=== PATIENT | female | born 1940 | race African-American/Black ===

== ENCOUNTER 2022-07-19 22:22 | Inpatient (IN) | payer MEDICARE ==
[2022-07-20 00:50] VITALS: BMI 34.5
[2022-07-20] MEDS ORDERED: Ondansetron PF 4 MG/2 ML Vial IVP PRN (00:58)
[2022-07-20] MEDS ORDERED: Warfarin Sodium 5 MG TAB PO SCH (01:15)
[2022-07-20] MEDS: Acetaminophen 325 MG TAB PO PRN ×2 (06:06→21:15)
[2022-07-20] MEDS ORDERED: HumaLOG 300 UNITS/3 ML VIAL SC PRN (07:10)
[2022-07-20] MEDS ORDERED: Dextrose 50% Abboject 50 ML SYRINGE SLOW IVP PRN (07:10)
[2022-07-20] MEDS ORDERED: Dextrose 5% in Water 1,000 ML IV PRN (07:10)
[2022-07-20] MEDS ORDERED: Furosemide 20 MG/2 ML VIAL SLOW IVP SCH ×2 (07:15→14:00)
[2022-07-20 08:17] LABS: #Basophils 0.1 thou/uL (0.0-0.2); #Eosinphils 0.1 thou/uL (0.0-0.7); #Lymphocytes 1.5 thou/uL (1.20-3.40); #Monocytes 0.6 thou/uL (0.11-0.59); #Neutrophils 4.3 thou/uL (1.40-6.50); %Basophils 1.1 % (0.0-1.0); %Eosinophils 2.2 % (0.0-10.0); %Lymphocytes 23.3 % (21.0-51.0); %Monocytes 8.5 % (0.0-10.0); Hemoglobin 13.6 g/dL (12.0-16.0); Mean Corpuscular HGB CONC 35.2 g/dL (32.0-36.0); Mean Corpuscular Volume 85.4 fl (78.0-98.0); Mean Platelet Volume 9.3 fL (7.4-10.4); Platelet Count 180 10x3/uL (130-400); RBC Distribution Width 14.1 % (11.5-14.5); Red Blood Cell (RBC) Count 4.52 mill/uL (4.20-5.40); White Blood Cell (WBC) Count 6.5 10x3/uL (4.8-10.8)
[2022-07-20 08:37] LABS: Anion Gap 13 mmol/L (10-20); BUN (Urea Nitrogen) 10 mg/dL (9.8-20.1); Calc. Creatinine Clearance 79 mL/min (70-130); Calcium 9.5 mg/dL (7.8-10.44); Carbon Dioxide 25 mmol/L (23-31); Chloride 105 mmol/L (98-107); Estimated GFR 81; Glucose 180 mg/dL (83-110); Potassium 3.7 mmol/L (3.5-5.1); Sodium 139 mmol/L (136-145)
[2022-07-20 08:43] LABS: INR-International Normal Ratio 1.1; Prothrombin Time 14.5 sec (12.0-14.7)
[2022-07-20 08:44] LABS: PTT 37.2 sec (22.9-36.1)
[2022-07-20] MEDS: HumaLOG 300 UNITS/3 ML VIAL SC PRN ×2 (12:00→17:58)
[2022-07-20] MEDS: busPIRone HCl 10 MG TAB PO SCH ×2 (13:53→21:16)
[2022-07-20] MEDS: hydrALAZINE 10 MG TAB PO SCH ×2 (13:53→21:14)
[2022-07-20] MEDS: Warfarin Sodium 5 MG TAB PO SCH (17:58)
[2022-07-21 07:43] LABS: #Basophils 0.1 thou/uL (0.0-0.2); #Eosinphils 0.1 thou/uL (0.0-0.7); #Lymphocytes 1.3 thou/uL (1.20-3.40); #Monocytes 0.5 thou/uL (0.11-0.59); #Neutrophils 4.1 thou/uL (1.40-6.50); %Basophils 1.3 % (0.0-1.0); %Eosinophils 1.8 % (0.0-10.0); %Monocytes 8.7 % (0.0-10.0); %Neutrophils 67.2 % (42.0-75.0); Hemoglobin 14.1 g/dL (12.0-16.0); Mean Corpuscular HGB CONC 33.8 g/dL (32.0-36.0); Mean Corpuscular Hemoglobin 29.2 pg (27.0-31.0); Mean Corpuscular Volume 86.5 fl (78.0-98.0); Mean Platelet Volume 8.7 fL (7.4-10.4); Platelet Count 194 10x3/uL (130-400); RBC Distribution Width 14.1 % (11.5-14.5); Red Blood Cell (RBC) Count 4.82 mill/uL (4.20-5.40); White Blood Cell (WBC) Count 6.2 10x3/uL (4.8-10.8)
[2022-07-21 07:56] LABS: INR-International Normal Ratio 1.2; PTT 40.6 sec (22.9-36.1); Prothrombin Time 16.1 sec (12.0-14.7)
[2022-07-21 08:02] LABS: Anion Gap 12 mmol/L (10-20); BUN (Urea Nitrogen) 11 mg/dL (9.8-20.1); Calc. Creatinine Clearance 74 mL/min (70-130); Calcium 9.4 mg/dL (7.8-10.44); Carbon Dioxide 28 mmol/L (23-31); Chloride 105 mmol/L (98-107); Estimated GFR 75; Glucose 169 mg/dL (83-110); Potassium 3.4 mmol/L (3.5-5.1); Sodium 142 mmol/L (136-145)
[2022-07-21] MEDS: hydrALAZINE 10 MG TAB PO SCH ×3 (09:53→20:48)
[2022-07-21] MEDS: Furosemide 40 MG TAB PO SCH (09:53)
[2022-07-21] MEDS: metFORMIN 500 MG TAB PO SCH (09:53)
[2022-07-21] MEDS: busPIRone HCl 10 MG TAB PO SCH ×3 (09:53→20:49)
[2022-07-21] MEDS: HumaLOG 300 UNITS/3 ML VIAL SC PRN ×2 (13:27→18:27)
[2022-07-21] MEDS ORDERED: Polyethylene Glycol 3350 17 GM Packet PO SCH (15:00)
[2022-07-21] MEDS: Warfarin Sodium 5 MG TAB PO SCH (18:02)
[2022-07-22 06:15] LABS: Hemoglobin 14.1 g/dL (12.0-16.0); INR-International Normal Ratio 1.5; PTT 47.3 sec (22.9-36.1); Platelet Count 188 10x3/uL (130-400); Prothrombin Time 18.2 sec (12.0-14.7)
[2022-07-22] MEDS: hydrALAZINE 10 MG TAB PO SCH ×3 (08:32→20:16)
[2022-07-22] MEDS: metFORMIN 500 MG TAB PO SCH ×2 (08:32→20:15)
[2022-07-22] MEDS: Furosemide 40 MG TAB PO SCH (08:32)
[2022-07-22] MEDS: Polyethylene Glycol 3350 17 GM Packet PO SCH (08:33)
[2022-07-22] MEDS: busPIRone HCl 10 MG TAB PO SCH ×3 (08:33→20:15)
[2022-07-22] MEDS ORDERED: Iopamidol 370 76% 100 ML VIAL ONE (09:42)
[2022-07-22] MEDS ORDERED: Potassium Chloride 20 MEQ TAB PO SCH (16:15)
[2022-07-22] MEDS: Warfarin Sodium 5 MG TAB PO SCH (16:57)
[2022-07-22] MEDS ORDERED: Aspirin 81 mg Enteric Coated Tablet PO SCH (17:30)
[2022-07-22] MEDS: Atorvastatin Calcium 40 MG TAB PO SCH (20:15)
[2022-07-22] MEDS: Famotidine 20 MG TAB PO SCH (20:15)
[2022-07-23 05:39] LABS: Hemoglobin 13.7 g/dL (12.0-16.0); Platelet Count 195 10x3/uL (130-400)
[2022-07-23 05:48] LABS: Hemoglobin A1c 7.2 % (4.0-6.0)
[2022-07-23 06:08] LABS: Cardiac Risk 4.4 (Less than 4.5)
[2022-07-23 06:22] LABS: INR-International Normal Ratio 1.6; Prothrombin Time 19.8 sec (12.0-14.7)
[2022-07-23 06:23] LABS: PTT 49.7 sec (22.9-36.1)
[2022-07-23] MEDS: busPIRone HCl 10 MG TAB PO SCH ×3 (08:46→20:39)
[2022-07-23] MEDS: Polyethylene Glycol 3350 17 GM Packet PO SCH (08:50)
[2022-07-23] MEDS: hydrALAZINE 10 MG TAB PO SCH ×3 (08:52→20:39)
[2022-07-23] MEDS: Famotidine 20 MG TAB PO SCH ×2 (08:52→20:39)
[2022-07-23] MEDS: metFORMIN 500 MG TAB PO SCH ×2 (08:52→20:39)
[2022-07-23] MEDS: Aspirin 81 mg Enteric Coated Tablet PO SCH (08:53)
[2022-07-23] MEDS: Furosemide 40 MG TAB PO SCH (08:53)
[2022-07-23] MEDS: Acetaminophen 325 MG TAB PO PRN (12:41)
[2022-07-23] MEDS: Warfarin Sodium 7.5 MG TAB PO SCH (17:34)
[2022-07-23] MEDS: Atorvastatin Calcium 40 MG TAB PO SCH (20:39)
[2022-07-24 07:10] LABS: Hemoglobin 13.7 g/dL (12.0-16.0); Platelet Count 205 10x3/uL (130-400)
[2022-07-24 07:39] LABS: INR-International Normal Ratio 1.6; Prothrombin Time 19.9 sec (12.0-14.7)
[2022-07-24] MEDS: busPIRone HCl 10 MG TAB PO SCH ×3 (08:46→20:45)
[2022-07-24] MEDS: Famotidine 20 MG TAB PO SCH ×2 (08:51→20:45)
[2022-07-24] MEDS: Furosemide 40 MG TAB PO SCH (08:51)
[2022-07-24] MEDS: Aspirin 81 mg Enteric Coated Tablet PO SCH (08:51)
[2022-07-24] MEDS: metFORMIN 500 MG TAB PO SCH ×2 (08:51→20:47)
[2022-07-24] MEDS: Polyethylene Glycol 3350 17 GM Packet PO SCH ×2 (08:52→09:01)
[2022-07-24] MEDS: hydrALAZINE 10 MG TAB PO SCH ×3 (08:59→20:46)
[2022-07-24] MEDS: Gabapentin 300 MG CAP PO PRN ×2 (12:37→20:46)
[2022-07-24] MEDS: Acetaminophen 325 MG TAB PO PRN (14:51)
[2022-07-24] MEDS: Warfarin Sodium 7.5 MG TAB PO SCH (18:04)
[2022-07-24] MEDS: Atorvastatin Calcium 40 MG TAB PO SCH (20:47)
[2022-07-25 07:06] LABS: Hemoglobin 14.2 g/dL (12.0-16.0); Platelet Count 194 10x3/uL (130-400)
[2022-07-25 07:20] LABS: Prothrombin Time 23.9 sec (12.0-14.7)
[2022-07-25] MEDS: Aspirin 81 mg Enteric Coated Tablet PO SCH (08:43)
[2022-07-25] MEDS: Furosemide 40 MG TAB PO SCH (08:43)
[2022-07-25] MEDS: busPIRone HCl 10 MG TAB PO SCH (08:43)
[2022-07-25] MEDS: Famotidine 20 MG TAB PO SCH (08:44)
[2022-07-25] MEDS: metFORMIN 500 MG TAB PO SCH (08:44)
[2022-07-25] MEDS: hydrALAZINE 10 MG TAB PO SCH (08:44)
[2022-07-25] MEDS: Polyethylene Glycol 3350 17 GM Packet PO SCH (08:45)
[2022-07-25] MEDS: Gabapentin 300 MG CAP PO PRN (09:22)
[2022-07-25 12:19] VITALS: BP 132/81; TEMP 98.8
== END 2022-07-25 13:51 | disposition swing bed (61) | DRG 301 ==
LOC: T4-B 22:22 → OBSVTOIN 07-20 01:00
PROVIDERS: ADMIT Internal Medicine; ATTEND Internal Medicine
DX: I82.412 Acute embolism and thrombosis of left femoral vein (principal); Z66 Do not resuscitate; Z51.5 Encounter for palliative care; E87.6 Hypokalemia; I70.1 Atherosclerosis of renal artery; I11.0 Hypertensive heart disease with heart failure; E11.9 Type 2 diabetes mellitus without complications; G20 Parkinson's disease; I50.9 Heart failure, unspecified; Z88.5 Allergy status to narcotic agent; Z88.8 Allergy status to other drugs, medicaments and biological substances; Z79.84 Long term (current) use of oral hypoglycemic drugs; Z79.02 Long term (current) use of antithrombotics/antiplatelets; Z79.899 Other long term (current) drug therapy
CPT/HCPCS: 36415; 36416; 74177; 75635; 80048; 80061; 83036; 83880; 85014; 85018; 85025; 85049; 85610; 85730; 93923; 93970; J1650; J1815; J1940; J2405; Q9967

== ENCOUNTER 2022-08-25 17:13 | Inpatient (IN) | payer MEDICARE ==
[2022-08-25 19:35] VITALS: BMI 31.0
[2022-08-25] MEDS ORDERED: Ondansetron ODT 4 MG TAB PO PRN (20:27)
[2022-08-25] MEDS ORDERED: Dextrose 5% in Water 1,000 ML IV PRN (20:27)
[2022-08-25] MEDS ORDERED: Ondansetron PF 4 MG/2 ML Vial IVP PRN (20:27)
[2022-08-25] MEDS ORDERED: TETANUS, DIPHTHERIA TOX,ADULT (TDVAX) 0.5 ML VIAL IM ONE (20:27)
[2022-08-25] MEDS ORDERED: Dextrose 50% Abboject 50 ML SYRINGE SLOW IVP PRN (20:27)
[2022-08-25] MEDS ORDERED: traMADol HCl 50 MG TAB PO PRN (20:32)
[2022-08-25] MEDS ORDERED: Acetaminophen 325 MG TAB PO PRN (20:32)
[2022-08-25] MEDS ORDERED: Docusate 100 MG CAP PO PRN (20:33)
[2022-08-25] MEDS ORDERED: Labetalol HCl 100 MG/20 ML VIAL SLOW IVP PRN (20:33)
[2022-08-25] MEDS ORDERED: Bisacodyl 10 MG SUPP PR PRN (20:33)
[2022-08-25] MEDS ORDERED: Gabapentin 300 MG CAP PO PRN (20:36)
[2022-08-25] MEDS: hydrALAZINE 10 MG TAB PO SCH (22:38)
[2022-08-25] MEDS: busPIRone HCl 10 MG TAB PO SCH (22:38)
[2022-08-25] MEDS: Famotidine 20 MG TAB PO SCH (22:38)
[2022-08-25] MEDS: Atorvastatin Calcium 40 MG TAB PO SCH (22:38)
[2022-08-26 02:24] LABS: #Basophils 0.1 thou/uL (0.0-0.2); #Eosinphils 0.1 thou/uL (0.0-0.7); #Lymphocytes 1.7 thou/uL (1.20-3.40); #Monocytes 0.7 thou/uL (0.11-0.59); #Neutrophils 5.6 thou/uL (1.40-6.50); %Basophils 0.7 % (0.0-1.0); %Eosinophils 1.6 % (0.0-10.0); %Lymphocytes 20.6 % (21.0-51.0); %Monocytes 9.1 % (0.0-10.0); Hemoglobin 12.8 g/dL (12.0-16.0); Mean Corpuscular HGB CONC 35.1 g/dL (32.0-36.0); Mean Corpuscular Hemoglobin 29.1 pg (27.0-31.0); Mean Corpuscular Volume 83.1 fl (78.0-98.0); Mean Platelet Volume 8.5 fL (7.4-10.4); Platelet Count 196 10x3/uL (130-400); RBC Distribution Width 13.8 % (11.5-14.5); Red Blood Cell (RBC) Count 4.39 mill/uL (4.20-5.40); White Blood Cell (WBC) Count 8.2 10x3/uL (4.8-10.8)
[2022-08-26 02:36] LABS: INR-International Normal Ratio 1.4; PTT 30.9 sec (22.9-36.1); Prothrombin Time 17.5 sec (12.0-14.7)
[2022-08-26 03:17] LABS: Anion Gap 17 mmol/L (10-20); BUN (Urea Nitrogen) 8 mg/dL (9.8-20.1); Calc. Creatinine Clearance 75 mL/min (70-130); Calcium 8.9 mg/dL (7.8-10.44); Carbon Dioxide 22 mmol/L (23-31); Chloride 103 mmol/L (98-107); Estimated GFR 86; Glucose 152 mg/dL (83-110); Magnesium 1.9 mg/dL (1.6-2.6); Phosphorus 2.6 mg/dL (2.3-4.7); Potassium 3.3 mmol/L (3.5-5.1); Sodium 139 mmol/L (136-145)
[2022-08-26] MEDS ORDERED: Potassium Chloride 20 MEQ TAB PO SCH (07:00)
[2022-08-26] MEDS: busPIRone HCl 10 MG TAB PO SCH ×3 (08:05→20:34)
[2022-08-26] MEDS: hydrALAZINE 10 MG TAB PO SCH ×3 (08:07→20:35)
[2022-08-26] MEDS ORDERED: hydrALAZINE 10 MG TAB PO SCH (08:30)
[2022-08-26] MEDS: hydrALAZINE 25 MG TAB PO SCH ×2 (16:02→20:34)
[2022-08-26] MEDS: Famotidine 20 MG TAB PO SCH (20:33)
[2022-08-26] MEDS: Atorvastatin Calcium 40 MG TAB PO SCH (20:33)
[2022-08-26] MEDS ORDERED: Sodium Chloride 0.9% 500 ML IV SCH (22:45)
[2022-08-27 08:02] LABS: Anion Gap 19 mmol/L (10-20); BUN (Urea Nitrogen) 10 mg/dL (9.8-20.1); Calc. Creatinine Clearance 73 mL/min (70-130); Calcium 8.7 mg/dL (7.8-10.44); Carbon Dioxide 19 mmol/L (23-31); Chloride 108 mmol/L (98-107); Estimated GFR 79; Glucose 110 mg/dL (83-110); Potassium 4.4 mmol/L (3.5-5.1); Sodium 142 mmol/L (136-145)
[2022-08-27] MEDS: busPIRone HCl 10 MG TAB PO SCH ×3 (08:55→21:02)
[2022-08-27] MEDS: hydrALAZINE 25 MG TAB PO SCH ×3 (08:56→21:02)
[2022-08-27] MEDS: hydrALAZINE 10 MG TAB PO SCH ×3 (10:14→21:12)
[2022-08-27] MEDS: HumaLOG 300 UNITS/3 ML VIAL SC PRN ×2 (12:29→16:39)
[2022-08-27] MEDS: Warfarin Sodium 7.5 MG TAB PO SCH (16:39)
[2022-08-27] MEDS: Famotidine 20 MG TAB PO SCH (21:02)
[2022-08-27] MEDS: Atorvastatin Calcium 40 MG TAB PO SCH (21:02)
[2022-08-28] MEDS: HumaLOG 300 UNITS/3 ML VIAL SC PRN ×2 (00:47→21:20)
[2022-08-28 06:20] LABS: INR-International Normal Ratio 1.1; Prothrombin Time 14.6 sec (12.0-14.7)
[2022-08-28] MEDS ORDERED: HumaLOG 300 UNITS/3 ML VIAL SC PRN (08:45)
[2022-08-28] MEDS: busPIRone HCl 10 MG TAB PO SCH ×3 (09:21→20:17)
[2022-08-28] MEDS: hydrALAZINE 25 MG TAB PO SCH ×3 (09:21→22:15)
[2022-08-28] MEDS: Warfarin Sodium 7.5 MG TAB PO SCH (17:47)
[2022-08-28] MEDS: Famotidine 20 MG TAB PO SCH (20:18)
[2022-08-28] MEDS: Atorvastatin Calcium 40 MG TAB PO SCH (20:18)
[2022-08-29 06:03] LABS: Hemoglobin 11.7 g/dL (12.0-16.0); Platelet Count 202 10x3/uL (130-400)
[2022-08-29 06:17] LABS: INR-International Normal Ratio 1.1; Prothrombin Time 14.9 sec (12.0-14.7)
[2022-08-29] MEDS: hydrALAZINE 25 MG TAB PO SCH ×2 (09:49→15:16)
[2022-08-29] MEDS: busPIRone HCl 10 MG TAB PO SCH ×2 (09:49→15:15)
[2022-08-29 15:21] VITALS: BP 136/80; TEMP 98.7
[2022-08-29] MEDS: Warfarin Sodium 7.5 MG TAB PO SCH (17:47)
== END 2022-08-29 18:03 | DRG 83 ==
LOC: IMCU/EMU 19:22 → SURG A 08-26 19:20
PROVIDERS: ADMIT Student in an Organized Health Care Education/Training Program; ATTEND Student in an Organized Health Care Education/Training Program
DX: S06.6XAA Traumatic subarachnoid hemorrhage with loss of consciousness status unknown, initial encounter (principal); I82.412 Acute embolism and thrombosis of left femoral vein; I82.442 Acute embolism and thrombosis of left tibial vein; E11.51 Type 2 diabetes mellitus with diabetic peripheral angiopathy without gangrene; G20 Parkinson's disease; F02.80 Dementia in other diseases classified elsewhere, unspecified severity, without behavioral disturbance, psychotic disturbance, mood disturbance, and anxiety; I11.0 Hypertensive heart disease with heart failure; I50.9 Heart failure, unspecified; W19.XXXA Unspecified fall, initial encounter; Z90.49 Acquired absence of other specified parts of digestive tract; Z88.5 Allergy status to narcotic agent; Z90.710 Acquired absence of both cervix and uterus; Z79.84 Long term (current) use of oral hypoglycemic drugs; Z79.82 Long term (current) use of aspirin; Z79.02 Long term (current) use of antithrombotics/antiplatelets; Z79.899 Other long term (current) drug therapy
CPT/HCPCS: 36415; 36416; 70450; 70551; 80048; 83735; 84100; 84484; 85014; 85018; 85025; 85049; 85610; 85730; 90714; 93005; 93010; 93970; J1650; J7030

== ENCOUNTER 2022-10-01 12:54 | Inpatient (IN) | payer MEDICARE ==
[2022-10-01] MEDS ORDERED: Ondansetron ODT 4 MG TAB PO PRN (17:12)
[2022-10-01] MEDS ORDERED: Ondansetron PF 4 MG/2 ML Vial IVP PRN (17:12)
[2022-10-01] MEDS ORDERED: Acetaminophen 325 MG TAB PO PRN (17:18)
[2022-10-01] MEDS ORDERED: Dextrose 50% Abboject 50 ML SYRINGE SLOW IVP PRN (17:22)
[2022-10-01] MEDS ORDERED: HumaLOG 300 UNITS/3 ML VIAL SC PRN (17:22)
[2022-10-01] MEDS ORDERED: Dextrose 5% in Water 1,000 ML IV PRN (17:22)
[2022-10-01] MEDS ORDERED: Glucagon 1 MG/ML KIT IM PRN (17:22)
[2022-10-01 17:42] VITALS: BMI 33.5
[2022-10-01 18:52] LABS: INR-International Normal Ratio 1.5; Prothrombin Time 18.5 sec (12.0-14.7)
[2022-10-01 18:59] LABS: CKMB 0.7 ng/mL (0-6.6)
[2022-10-01] MEDS: busPIRone HCl 10 MG TAB PO SCH (20:43)
[2022-10-01] MEDS: traMADol HCl 50 MG TAB PO SCH (20:43)
[2022-10-01] MEDS: Atorvastatin Calcium 40 MG TAB PO SCH (20:43)
[2022-10-01] MEDS: cefTRIAXone\\ROCEPHIN 1 GM in Sodium Chloride 0.9% 100 ML IVPB SCH (20:43)
[2022-10-02 06:17] LABS: #Basophils 0.1 thou/uL (0.0-0.2); #Eosinphils 0.4 thou/uL (0.0-0.7); #Monocytes 0.7 thou/uL (0.11-0.59); #Neutrophils 4.3 thou/uL (1.40-6.50); %Basophils 2.1 % (0.0-1.0); %Eosinophils 5.9 % (0.0-10.0); %Lymphocytes 18.3 % (21.0-51.0); %Monocytes 9.9 % (0.0-10.0); %Neutrophils 63.5 % (42.0-75.0); Hemoglobin 11.1 g/dL (12.0-16.0); Mean Corpuscular HGB CONC 35.2 g/dL (32.0-36.0); Mean Corpuscular Hemoglobin 28.9 pg (27.0-31.0); Mean Platelet Volume 11.1 fL (7.4-10.4); Platelet Count 238 10x3/uL (130-400); RBC Distribution Width 17.2 % (11.5-14.5); Red Blood Cell (RBC) Count 3.84 mill/uL (4.20-5.40); White Blood Cell (WBC) Count 6.8 10x3/uL (4.8-10.8)
[2022-10-02 06:30] LABS: INR-International Normal Ratio 1.5; Prothrombin Time 18.3 sec (12.0-14.7)
[2022-10-02 06:38] LABS: Anion Gap 11 mmol/L (10-20); BUN (Urea Nitrogen) 13 mg/dL (9.8-20.1); Calc. Creatinine Clearance 84 mL/min (70-130); Calcium 8.9 mg/dL (7.8-10.44); Carbon Dioxide 25 mmol/L (23-31); Chloride 107 mmol/L (98-107); Estimated GFR 87; Glucose 96 mg/dL (83-110); Potassium 3.3 mmol/L (3.5-5.1); Sodium 140 mmol/L (136-145)
[2022-10-02] MEDS: Aspirin 81 mg Enteric Coated Tablet PO SCH (08:44)
[2022-10-02] MEDS: busPIRone HCl 10 MG TAB PO SCH ×3 (08:45→22:24)
[2022-10-02] MEDS: Furosemide 40 MG TAB PO SCH (08:45)
[2022-10-02] MEDS: traMADol HCl 50 MG TAB PO SCH ×2 (08:45→22:25)
[2022-10-02] MEDS: Potassium Chloride 10 MEQ TAB PO SCH (08:46)
[2022-10-02] MEDS: Gabapentin 300 MG CAP PO PRN (13:05)
[2022-10-02] MEDS: Warfarin Sodium 5 MG TAB PO SCH (16:04)
[2022-10-02] MEDS: HumaLOG 300 UNITS/3 ML VIAL SC PRN (18:34)
[2022-10-02] MEDS: Atorvastatin Calcium 40 MG TAB PO SCH (22:24)
[2022-10-02] MEDS: cefTRIAXone\\ROCEPHIN 1 GM in Sodium Chloride 0.9% 100 ML IVPB SCH (22:52)
[2022-10-03 06:37] LABS: #Basophils 0.1 thou/uL (0.0-0.2); #Eosinphils 0.5 thou/uL (0.0-0.7); #Monocytes 0.6 thou/uL (0.11-0.59); #Neutrophils 2.8 thou/uL (1.40-6.50); %Basophils 1.7 % (0.0-1.0); %Eosinophils 9.4 % (0.0-10.0); %Lymphocytes 23.2 % (21.0-51.0); %Monocytes 11.7 % (0.0-10.0); %Neutrophils 53.8 % (42.0-75.0); Hemoglobin 10.6 g/dL (12.0-16.0); Mean Corpuscular HGB CONC 35.5 g/dL (32.0-36.0); Mean Corpuscular Hemoglobin 28.7 pg (27.0-31.0); Mean Platelet Volume 11.1 fL (7.4-10.4); Platelet Count 224 10x3/uL (130-400); RBC Distribution Width 17.1 % (11.5-14.5); Red Blood Cell (RBC) Count 3.69 mill/uL (4.20-5.40); White Blood Cell (WBC) Count 5.2 10x3/uL (4.8-10.8)
[2022-10-03 06:46] LABS: INR-International Normal Ratio 1.4; Prothrombin Time 17.6 sec (12.0-14.7)
[2022-10-03 06:57] LABS: ALT (SGPT) 17 U/L (8-55); AST (SGOT) 26 U/L (5-34); Albumin 3.3 g/dL (3.4-4.8); Alkaline Phosphatase 57 U/L (40-110); Anion Gap 10 mmol/L (10-20); BUN (Urea Nitrogen) 10 mg/dL (9.8-20.1); Calc. Creatinine Clearance 80 mL/min (70-130); Calcium 8.7 mg/dL (7.8-10.44); Carbon Dioxide 26 mmol/L (23-31); Chloride 109 mmol/L (98-107); Estimated GFR 85; Globulin 2.2 g/dL (2.4-3.5); Glucose 147 mg/dL (83-110); Potassium 3.7 mmol/L (3.5-5.1); Protein, Total 5.5 g/dL (5.8-8.1); Sodium 141 mmol/L (136-145)
[2022-10-03] MEDS: Furosemide 40 MG TAB PO SCH (08:54)
[2022-10-03] MEDS: Aspirin 81 mg Enteric Coated Tablet PO SCH (08:54)
[2022-10-03] MEDS: busPIRone HCl 10 MG TAB PO SCH ×3 (08:54→20:23)
[2022-10-03] MEDS: traMADol HCl 50 MG TAB PO SCH ×2 (08:55→20:23)
[2022-10-03] MEDS: Potassium Chloride 10 MEQ TAB PO SCH (08:55)
[2022-10-03] MEDS: Gabapentin 300 MG CAP PO PRN (15:22)
[2022-10-03] MEDS: Warfarin Sodium 5 MG TAB PO SCH (17:25)
[2022-10-03] MEDS: cefTRIAXone\\ROCEPHIN 1 GM in Sodium Chloride 0.9% 100 ML IVPB SCH (20:22)
[2022-10-03] MEDS: Atorvastatin Calcium 40 MG TAB PO SCH (20:25)
[2022-10-04 06:45] LABS: #Basophils 0.1 thou/uL (0.0-0.2); #Eosinphils 0.6 thou/uL (0.0-0.7); #Monocytes 0.7 thou/uL (0.11-0.59); #Neutrophils 4.4 thou/uL (1.40-6.50); %Basophils 1.7 % (0.0-1.0); %Eosinophils 8.1 % (0.0-10.0); %Lymphocytes 15.3 % (21.0-51.0); %Monocytes 10.7 % (0.0-10.0); %Neutrophils 63.8 % (42.0-75.0); Hemoglobin 10.6 g/dL (12.0-16.0); Mean Corpuscular HGB CONC 35.1 g/dL (32.0-36.0); Mean Corpuscular Hemoglobin 28.5 pg (27.0-31.0); Mean Corpuscular Volume 81.2 fl (78.0-98.0); Platelet Count 213 10x3/uL (130-400); RBC Distribution Width 17.2 % (11.5-14.5); Red Blood Cell (RBC) Count 3.72 mill/uL (4.20-5.40); White Blood Cell (WBC) Count 6.9 10x3/uL (4.8-10.8)
[2022-10-04 07:00] LABS: INR-International Normal Ratio 1.3; Prothrombin Time 16.8 sec (12.0-14.7)
[2022-10-04 07:15] LABS: Anion Gap 12 mmol/L (10-20); BUN (Urea Nitrogen) 8 mg/dL (9.8-20.1); Calc. Creatinine Clearance 84 mL/min (70-130); Calcium 8.6 mg/dL (7.8-10.44); Carbon Dioxide 25 mmol/L (23-31); Chloride 106 mmol/L (98-107); Estimated GFR 87; Glucose 177 mg/dL (83-110); Potassium 3.7 mmol/L (3.5-5.1); Sodium 139 mmol/L (136-145)
[2022-10-04] MEDS: traMADol HCl 50 MG TAB PO SCH ×2 (09:02→21:32)
[2022-10-04] MEDS: Potassium Chloride 10 MEQ TAB PO SCH (09:03)
[2022-10-04] MEDS: Furosemide 40 MG TAB PO SCH (09:03)
[2022-10-04] MEDS: Aspirin 81 mg Enteric Coated Tablet PO SCH (09:03)
[2022-10-04] MEDS: busPIRone HCl 10 MG TAB PO SCH ×3 (09:03→21:33)
[2022-10-04] MEDS: Acetaminophen 325 MG TAB PO PRN (14:35)
[2022-10-04] MEDS: Warfarin Sodium 5 MG TAB PO SCH (16:40)
[2022-10-04] MEDS ORDERED: Benzocaine/Menthol 1 LOZ LOZ PO PRN (20:31)
[2022-10-04] MEDS ORDERED: Benzonatate 100 MG CAP PO PRN (20:31)
[2022-10-04] MEDS: cefTRIAXone\\ROCEPHIN 1 GM in Sodium Chloride 0.9% 100 ML IVPB SCH (21:32)
[2022-10-04] MEDS: Atorvastatin Calcium 40 MG TAB PO SCH (21:33)
[2022-10-05 07:20] LABS: #Basophils 0.1 thou/uL (0.0-0.2); #Eosinphils 0.4 thou/uL (0.0-0.7); #Monocytes 0.6 thou/uL (0.11-0.59); %Basophils 1.4 % (0.0-1.0); %Eosinophils 6.7 % (0.0-10.0); %Lymphocytes 18.4 % (21.0-51.0); %Neutrophils 64.2 % (42.0-75.0); Mean Corpuscular HGB CONC 35.5 g/dL (32.0-36.0); Mean Corpuscular Hemoglobin 29.1 pg (27.0-31.0); Mean Platelet Volume 11.3 fL (7.4-10.4); Platelet Count 229 10x3/uL (130-400); RBC Distribution Width 17.4 % (11.5-14.5); Red Blood Cell (RBC) Count 3.78 mill/uL (4.20-5.40); White Blood Cell (WBC) Count 6.2 10x3/uL (4.8-10.8)
[2022-10-05 07:37] LABS: INR-International Normal Ratio 1.2; Prothrombin Time 15.5 sec (12.0-14.7)
[2022-10-05 07:46] LABS: Anion Gap 13 mmol/L (10-20); BUN (Urea Nitrogen) 12 mg/dL (9.8-20.1); Calc. Creatinine Clearance 83 mL/min (70-130); Carbon Dioxide 25 mmol/L (23-31); Chloride 106 mmol/L (98-107); Estimated GFR 87; Glucose 176 mg/dL (83-110); Potassium 4.1 mmol/L (3.5-5.1); Sodium 140 mmol/L (136-145)
[2022-10-05] MEDS: traMADol HCl 50 MG TAB PO SCH ×2 (09:20→21:05)
[2022-10-05] MEDS: busPIRone HCl 10 MG TAB PO SCH ×3 (09:21→21:04)
[2022-10-05] MEDS: Potassium Chloride 10 MEQ TAB PO SCH (09:21)
[2022-10-05] MEDS: Aspirin 81 mg Enteric Coated Tablet PO SCH (09:21)
[2022-10-05] MEDS: Furosemide 40 MG TAB PO SCH (09:21)
[2022-10-05] MEDS: Acetaminophen 325 MG TAB PO PRN (09:25)
[2022-10-05] MEDS: Warfarin Sodium 10 MG TAB PO SCH (16:17)
[2022-10-05] MEDS: Atorvastatin Calcium 40 MG TAB PO SCH (21:03)
[2022-10-05] MEDS: cefTRIAXone\\ROCEPHIN 1 GM in Sodium Chloride 0.9% 100 ML IVPB SCH (21:04)
[2022-10-06] MEDS: Docusate 100 MG CAP PO PRN (05:50)
[2022-10-06 08:20] LABS: #Basophils 0.1 thou/uL (0.0-0.2); #Eosinphils 0.4 thou/uL (0.0-0.7); #Monocytes 0.6 thou/uL (0.11-0.59); #Neutrophils 3.3 thou/uL (1.40-6.50); %Basophils 1.9 % (0.0-1.0); %Eosinophils 6.7 % (0.0-10.0); %Lymphocytes 26.1 % (21.0-51.0); %Monocytes 9.9 % (0.0-10.0); %Neutrophils 55.2 % (42.0-75.0); Hemoglobin 11.2 g/dL (12.0-16.0); Mean Corpuscular Hemoglobin 29.1 pg (27.0-31.0); Mean Corpuscular Volume 83.1 fl (78.0-98.0); Mean Platelet Volume 12.8 fL (7.4-10.4); Platelet Count 235 10x3/uL (130-400); RBC Distribution Width 17.8 % (11.5-14.5); Red Blood Cell (RBC) Count 3.85 mill/uL (4.20-5.40); White Blood Cell (WBC) Count 5.9 10x3/uL (4.8-10.8)
[2022-10-06 08:22] LABS: INR-International Normal Ratio 1.2; Prothrombin Time 15.2 sec (12.0-14.7)
[2022-10-06 08:30] LABS: Anion Gap 10 mmol/L (10-20); BUN (Urea Nitrogen) 14 mg/dL (9.8-20.1); Calc. Creatinine Clearance 85 mL/min (70-130); Calcium 9.3 mg/dL (7.8-10.44); Carbon Dioxide 27 mmol/L (23-31); Chloride 105 mmol/L (98-107); Estimated GFR 87; Glucose 143 mg/dL (83-110); Potassium 4.2 mmol/L (3.5-5.1); Sodium 138 mmol/L (136-145)
[2022-10-06] MEDS: Furosemide 40 MG TAB PO SCH (08:55)
[2022-10-06] MEDS: Aspirin 81 mg Enteric Coated Tablet PO SCH (08:55)
[2022-10-06] MEDS: traMADol HCl 50 MG TAB PO SCH ×2 (08:55→20:34)
[2022-10-06] MEDS: Potassium Chloride 10 MEQ TAB PO SCH (08:57)
[2022-10-06] MEDS: busPIRone HCl 10 MG TAB PO SCH ×3 (08:57→20:34)
[2022-10-06] MEDS: Warfarin Sodium 10 MG TAB PO SCH (16:16)
[2022-10-06] MEDS: Atorvastatin Calcium 40 MG TAB PO SCH (20:34)
[2022-10-06] MEDS: Bisacodyl 10 MG SUPP PR PRN (20:34)
[2022-10-07 07:03] LABS: #Basophils 0.1 thou/uL (0.0-0.2); #Eosinphils 0.4 thou/uL (0.0-0.7); #Monocytes 0.6 thou/uL (0.11-0.59); #Neutrophils 3.5 thou/uL (1.40-6.50); %Basophils 1.9 % (0.0-1.0); %Eosinophils 6.7 % (0.0-10.0); %Lymphocytes 26.5 % (21.0-51.0); %Monocytes 9.9 % (0.0-10.0); %Neutrophils 54.7 % (42.0-75.0); Hemoglobin 11.5 g/dL (12.0-16.0); Mean Corpuscular HGB CONC 35.7 g/dL (32.0-36.0); Mean Corpuscular Hemoglobin 28.9 pg (27.0-31.0); Mean Corpuscular Volume 80.9 fl (78.0-98.0); Mean Platelet Volume 10.9 fL (7.4-10.4); Platelet Count 243 10x3/uL (130-400); RBC Distribution Width 16.9 % (11.5-14.5); Red Blood Cell (RBC) Count 3.98 mill/uL (4.20-5.40); White Blood Cell (WBC) Count 6.4 10x3/uL (4.8-10.8)
[2022-10-07 07:35] LABS: INR-International Normal Ratio 1.3; Prothrombin Time 16.7 sec (12.0-14.7)
[2022-10-07 07:38] LABS: Anion Gap 9 mmol/L (10-20); BUN (Urea Nitrogen) 16 mg/dL (9.8-20.1); Calc. Creatinine Clearance 89 mL/min (70-130); Calcium 9.3 mg/dL (7.8-10.44); Carbon Dioxide 27 mmol/L (23-31); Chloride 108 mmol/L (98-107); Estimated GFR 88; Glucose 107 mg/dL (83-110); Potassium 3.7 mmol/L (3.5-5.1); Sodium 140 mmol/L (136-145)
[2022-10-07] MEDS: traMADol HCl 50 MG TAB PO SCH ×2 (08:37→20:33)
[2022-10-07] MEDS: Aspirin 81 mg Enteric Coated Tablet PO SCH (08:37)
[2022-10-07] MEDS: Furosemide 40 MG TAB PO SCH (08:39)
[2022-10-07] MEDS: busPIRone HCl 10 MG TAB PO SCH ×3 (08:39→20:33)
[2022-10-07] MEDS: Potassium Chloride 10 MEQ TAB PO SCH (08:39)
[2022-10-07] MEDS: Docusate 100 MG CAP PO PRN (09:10)
[2022-10-07] MEDS ORDERED: Apixaban 5 MG TAB PO SCH (10:00)
[2022-10-07] MEDS: Atorvastatin Calcium 40 MG TAB PO SCH (20:33)
[2022-10-07] MEDS: Apixaban 5 MG TAB PO SCH (20:34)
[2022-10-08 06:59] LABS: #Basophils 0.2 thou/uL (0.0-0.2); #Eosinphils 0.4 thou/uL (0.0-0.7); #Monocytes 0.8 thou/uL (0.11-0.59); #Neutrophils 3.3 thou/uL (1.40-6.50); %Basophils 2.3 % (0.0-1.0); %Eosinophils 6.2 % (0.0-10.0); %Lymphocytes 27.3 % (21.0-51.0); %Monocytes 12.1 % (0.0-10.0); %Neutrophils 51.6 % (42.0-75.0); Hemoglobin 12.5 g/dL (12.0-16.0); Mean Corpuscular HGB CONC 34.8 g/dL (32.0-36.0); Mean Corpuscular Hemoglobin 29.2 pg (27.0-31.0); Mean Corpuscular Volume 83.9 fl (78.0-98.0); Mean Platelet Volume 11.1 fL (7.4-10.4); Platelet Count 252 10x3/uL (130-400); RBC Distribution Width 17.8 % (11.5-14.5); Red Blood Cell (RBC) Count 4.28 mill/uL (4.20-5.40); White Blood Cell (WBC) Count 6.4 10x3/uL (4.8-10.8)
[2022-10-08 07:25] LABS: Anion Gap 9 mmol/L (10-20); BUN (Urea Nitrogen) 15 mg/dL (9.8-20.1); Calc. Creatinine Clearance 81 mL/min (70-130); Calcium 9.6 mg/dL (7.8-10.44); Carbon Dioxide 27 mmol/L (23-31); Chloride 107 mmol/L (98-107); Estimated GFR 86; Glucose 125 mg/dL (83-110); Potassium 3.8 mmol/L (3.5-5.1); Sodium 139 mmol/L (136-145)
[2022-10-08] MEDS: busPIRone HCl 10 MG TAB PO SCH ×3 (08:40→20:01)
[2022-10-08] MEDS: Aspirin 81 mg Enteric Coated Tablet PO SCH (08:40)
[2022-10-08] MEDS: traMADol HCl 50 MG TAB PO SCH ×2 (08:41→20:00)
[2022-10-08] MEDS: Potassium Chloride 10 MEQ TAB PO SCH (08:41)
[2022-10-08] MEDS: Apixaban 5 MG TAB PO SCH ×2 (08:43→20:01)
[2022-10-08] MEDS: Furosemide 40 MG TAB PO SCH (08:43)
[2022-10-08] MEDS: Gabapentin 300 MG CAP PO PRN ×2 (08:45→18:32)
[2022-10-08] MEDS: Bisacodyl 10 MG SUPP PR PRN (08:55)
[2022-10-08] MEDS: Acetaminophen 325 MG TAB PO PRN (12:17)
[2022-10-08] MEDS: HumaLOG 300 UNITS/3 ML VIAL SC PRN (18:35)
[2022-10-08] MEDS: Atorvastatin Calcium 40 MG TAB PO SCH (20:01)
[2022-10-09] MEDS: Acetaminophen 325 MG TAB PO PRN (06:21)
[2022-10-09 06:40] LABS: #Basophils 0.1 thou/uL (0.0-0.2); #Eosinphils 0.6 thou/uL (0.0-0.7); #Monocytes 0.7 thou/uL (0.11-0.59); #Neutrophils 3.2 thou/uL (1.40-6.50); %Basophils 2.3 % (0.0-1.0); %Eosinophils 9.6 % (0.0-10.0); %Lymphocytes 22.4 % (21.0-51.0); %Monocytes 11.8 % (0.0-10.0); %Neutrophils 53.4 % (42.0-75.0); Mean Corpuscular HGB CONC 35.1 g/dL (32.0-36.0); Mean Corpuscular Hemoglobin 29.5 pg (27.0-31.0); Mean Corpuscular Volume 83.9 fl (78.0-98.0); Mean Platelet Volume 10.9 fL (7.4-10.4); Platelet Count 237 10x3/uL (130-400); RBC Distribution Width 17.2 % (11.5-14.5); Red Blood Cell (RBC) Count 3.73 mill/uL (4.20-5.40)
[2022-10-09 07:04] LABS: Anion Gap 13 mmol/L (10-20); BUN (Urea Nitrogen) 19 mg/dL (9.8-20.1); Calc. Creatinine Clearance 80 mL/min (70-130); Calcium 9.1 mg/dL (7.8-10.44); Carbon Dioxide 23 mmol/L (23-31); Chloride 107 mmol/L (98-107); Estimated GFR 85; Glucose 117 mg/dL (83-110); Potassium 3.6 mmol/L (3.5-5.1); Sodium 139 mmol/L (136-145)
[2022-10-09] MEDS: busPIRone HCl 10 MG TAB PO SCH ×3 (09:25→20:46)
[2022-10-09] MEDS: traMADol HCl 50 MG TAB PO SCH ×2 (09:26→20:46)
[2022-10-09] MEDS: Potassium Chloride 10 MEQ TAB PO SCH (09:26)
[2022-10-09] MEDS: Furosemide 40 MG TAB PO SCH (09:26)
[2022-10-09] MEDS: Aspirin 81 mg Enteric Coated Tablet PO SCH (09:26)
[2022-10-09] MEDS: Apixaban 5 MG TAB PO SCH ×2 (09:26→20:46)
[2022-10-09] MEDS: Docusate 100 MG CAP PO PRN (09:40)
[2022-10-09] MEDS: Gabapentin 300 MG CAP PO PRN (13:27)
[2022-10-09] MEDS: Atorvastatin Calcium 40 MG TAB PO SCH (20:46)
[2022-10-10 06:15] LABS: #Basophils 0.1 thou/uL (0.0-0.2); #Eosinphils 0.5 thou/uL (0.0-0.7); #Monocytes 0.6 thou/uL (0.11-0.59); #Neutrophils 2.9 thou/uL (1.40-6.50); %Basophils 2.1 % (0.0-1.0); %Eosinophils 9.5 % (0.0-10.0); %Lymphocytes 26.1 % (21.0-51.0); %Monocytes 10.9 % (0.0-10.0); Hemoglobin 10.9 g/dL (12.0-16.0); Mean Corpuscular HGB CONC 34.9 g/dL (32.0-36.0); Mean Corpuscular Hemoglobin 28.9 pg (27.0-31.0); Mean Corpuscular Volume 82.8 fl (78.0-98.0); Mean Platelet Volume 11.3 fL (7.4-10.4); Platelet Count 244 10x3/uL (130-400); RBC Distribution Width 17.2 % (11.5-14.5); Red Blood Cell (RBC) Count 3.77 mill/uL (4.20-5.40); White Blood Cell (WBC) Count 5.7 10x3/uL (4.8-10.8)
[2022-10-10 06:39] LABS: Anion Gap 9 mmol/L (10-20); BUN (Urea Nitrogen) 18 mg/dL (9.8-20.1); Calc. Creatinine Clearance 79 mL/min (70-130); Calcium 9.2 mg/dL (7.8-10.44); Carbon Dioxide 28 mmol/L (23-31); Chloride 106 mmol/L (98-107); Estimated GFR 83; Glucose 121 mg/dL (83-110); Potassium 3.8 mmol/L (3.5-5.1); Sodium 139 mmol/L (136-145)
[2022-10-10] MEDS: Aspirin 81 mg Enteric Coated Tablet PO SCH (08:35)
[2022-10-10] MEDS: Potassium Chloride 10 MEQ TAB PO SCH (08:36)
[2022-10-10] MEDS: Apixaban 5 MG TAB PO SCH (08:36)
[2022-10-10] MEDS: traMADol HCl 50 MG TAB PO SCH (08:36)
[2022-10-10] MEDS: busPIRone HCl 10 MG TAB PO SCH (08:37)
[2022-10-10] MEDS: Furosemide 40 MG TAB PO SCH (08:37)
[2022-10-10] MEDS: Acetaminophen 325 MG TAB PO PRN (11:28)
[2022-10-10 12:35] VITALS: BP 133/63; TEMP 98.8
== END 2022-10-10 13:27 | disposition home health service (06) | DRG 690 ==
LOC: T4-B 16:00 → OBSVTOIN 17:12
PROVIDERS: ADMIT Hospitalist; ATTEND Hospitalist
DX: N39.0 Urinary tract infection, site not specified (principal); Z66 Do not resuscitate; E11.51 Type 2 diabetes mellitus with diabetic peripheral angiopathy without gangrene; I11.0 Hypertensive heart disease with heart failure; I50.9 Heart failure, unspecified; G20 Parkinson's disease; B96.1 Klebsiella pneumoniae [K. pneumoniae] as the cause of diseases classified elsewhere; K59.00 Constipation, unspecified; Z86.718 Personal history of other venous thrombosis and embolism; Z88.5 Allergy status to narcotic agent; Z88.8 Allergy status to other drugs, medicaments and biological substances; Z79.899 Other long term (current) drug therapy; Z79.84 Long term (current) use of oral hypoglycemic drugs; Z90.49 Acquired absence of other specified parts of digestive tract; Z90.710 Acquired absence of both cervix and uterus; Z98.49 Cataract extraction status, unspecified eye; Z82.49 Family history of ischemic heart disease and other diseases of the circulatory system
CPT/HCPCS: 36415; 36416; 80048; 80053; 82550; 82553; 85025; 85610; J0696; J1815; J3490

== ENCOUNTER 2022-11-14 11:13 | Inpatient (IN) | payer MEDICARE ==
[2022-11-14 12:16] LABS: #Basophils 0.1 thou/uL (0.0-0.2); #Eosinphils 0.2 thou/uL (0.0-0.7); #Monocytes 0.4 thou/uL (0.11-0.59); #Neutrophils 4.1 thou/uL (1.40-6.50); %Basophils 0.8 % (0.0-1.0); %Eosinophils 2.5 % (0.0-10.0); %Lymphocytes 20.4 % (21.0-51.0); %Monocytes 5.9 % (0.0-10.0); %Neutrophils 70.1 % (42.0-75.0); Hemoglobin 11.9 g/dL (12.0-16.0); Mean Corpuscular Hemoglobin 29.6 pg (27.0-31.0); Mean Corpuscular Volume 84.6 fl (78.0-98.0); Mean Platelet Volume 11.1 fL (7.4-10.4); Platelet Count 187 10x3/uL (130-400); RBC Distribution Width 14.8 % (11.5-14.5); Red Blood Cell (RBC) Count 4.02 mill/uL (4.20-5.40); White Blood Cell (WBC) Count 5.9 10x3/uL (4.8-10.8)
[2022-11-14 12:46] LABS: ALT (SGPT) 21 U/L (8-55); AST (SGOT) 17 U/L (5-34); Albumin 3.7 g/dL (3.4-4.8); Alkaline Phosphatase 62 U/L (40-110); Anion Gap 14 mmol/L (10-20); BUN (Urea Nitrogen) 15 mg/dL (9.8-20.1); Bilirubin, Total 0.6 mg/dL (0.2-1.2); Calc. Creatinine Clearance 0 mL/min (70-130); Calcium 9.7 mg/dL (7.8-10.44); Carbon Dioxide 25 mmol/L (23-31); Chloride 104 mmol/L (98-107); Estimated GFR 68; Globulin 2.4 g/dL (2.4-3.5); Glucose 115 mg/dL (83-110); Protein, Total 6.1 g/dL (5.8-8.1); Sodium 139 mmol/L (136-145)
[2022-11-14 12:47] LABS: Bilirubin Negative (Negative); Blood, Urine Negative (Negative); CAUTI Indications for Culture Fever or rigors; Clarity Clear (Clear); Glucose, Urine (Dipstick) Normal (Negative); Ketone, Urine Negative (Negative); Leukocyte 500 Leu/uL (Negative); Nitrite 1+ (Negative); Protein, Urine (Dipstick) Negative (Neg-Trace); RBC/HPF 0-3 HPF (0-3); Specific Gravity, Urine 1.007 (1.002-1.036); Squamous Epithelial 0-3 HPF (0-3); Urobilinogen Normal mg/dL (Less than 2); pH, Urine 7.5 (5.0-9.0)
[2022-11-14 12:50] LABS: Bacteria/HPF 1+ HPF (None Seen)
[2022-11-14 12:51] LABS: Urine Culture Reflex Yes Yes
[2022-11-14] MEDS ORDERED: cefTRIAXone (ROCEPHIN) 2 GM VIAL ONE (13:18)
[2022-11-14] MEDS ORDERED: Ondansetron PF 4 MG/2 ML Vial IVP PRN (15:21)
[2022-11-14] MEDS ORDERED: Ondansetron ODT 4 MG TAB PO PRN (15:21)
[2022-11-14] MEDS ORDERED: Acetaminophen 650 MG Suppository PR PRN (15:21)
[2022-11-14] MEDS ORDERED: Gabapentin 300 MG CAP PO PRN (15:26)
[2022-11-14] MEDS ORDERED: Docusate 100 MG CAP PO PRN (15:26)
[2022-11-14 15:46] VITALS: BMI 30.9
[2022-11-14] MEDS: Apixaban 5 MG TAB PO SCH (20:13)
[2022-11-14] MEDS: Atorvastatin Calcium 40 MG TAB PO SCH (20:13)
[2022-11-14] MEDS: Acetaminophen 325 MG TAB PO PRN (20:19)
[2022-11-15] MEDS ORDERED: hydrALAZINE 20 MG/ML VIAL SLOW IVP PRN (08:06)
[2022-11-15] MEDS: Tamsulosin HCl 0.4 MG CAP PO SCH (08:49)
[2022-11-15] MEDS: hydrALAZINE 25 MG TAB PO SCH ×3 (08:49→21:46)
[2022-11-15] MEDS: Apixaban 5 MG TAB PO SCH ×2 (08:49→21:46)
[2022-11-15] MEDS: Acetaminophen 325 MG TAB PO PRN ×2 (08:49→14:35)
[2022-11-15] MEDS: Aspirin 81 mg Enteric Coated Tablet PO SCH (08:50)
[2022-11-15 11:00] LABS: #Basophils 0.1 thou/uL (0.0-0.2); #Eosinphils 0.2 thou/uL (0.0-0.7); #Monocytes 0.4 thou/uL (0.11-0.59); #Neutrophils 3.2 thou/uL (1.40-6.50); %Basophils 1.4 % (0.0-1.0); %Eosinophils 4.5 % (0.0-10.0); %Lymphocytes 20.5 % (21.0-51.0); %Monocytes 7.7 % (0.0-10.0); %Neutrophils 65.7 % (42.0-75.0); Hemoglobin 11.9 g/dL (12.0-16.0); Mean Corpuscular Hemoglobin 29.5 pg (27.0-31.0); Mean Corpuscular Volume 84.4 fl (78.0-98.0); Mean Platelet Volume 11.1 fL (7.4-10.4); Platelet Count 190 10x3/uL (130-400); RBC Distribution Width 14.7 % (11.5-14.5); Red Blood Cell (RBC) Count 4.03 mill/uL (4.20-5.40); White Blood Cell (WBC) Count 4.9 10x3/uL (4.8-10.8)
[2022-11-15 11:26] LABS: Anion Gap 12 mmol/L (10-20); BUN (Urea Nitrogen) 11 mg/dL (9.8-20.1); Calc. Creatinine Clearance 69 mL/min (70-130); Calcium 9.2 mg/dL (7.8-10.44); Carbon Dioxide 27 mmol/L (23-31); Chloride 102 mmol/L (98-107); Estimated GFR 78; Glucose 142 mg/dL (83-110); Potassium 3.8 mmol/L (3.5-5.1); Sodium 137 mmol/L (136-145)
[2022-11-15] MEDS: cefTRIAXone\\ROCEPHIN 1 GM in Sodium Chloride 0.9% 100 ML IVPB SCH (12:03)
[2022-11-15] MEDS ORDERED: hydrOXYzine 25 MG TAB PO SCH (14:00)
[2022-11-15] MEDS ORDERED: Nitroglycerin 0.4 MG TAB (25 Tab Bottle) ONE (14:33)
[2022-11-15] MEDS ORDERED: Nitroglycerin 0.4 MG TAB (25 Tab Bottle) SL PRN (14:43)
[2022-11-15] MEDS ORDERED: Aspirin 81 mg Enteric Coated Tablet PO SCH (14:45)
[2022-11-15] MEDS ORDERED: Sodium Chloride 0.9% 500 ML IV SCH ×2 (15:00→15:45)
[2022-11-15 15:20] LABS: #Basophils 0.1 thou/uL (0.0-0.2); #Eosinphils 0.2 thou/uL (0.0-0.7); #Monocytes 0.5 thou/uL (0.11-0.59); #Neutrophils 4.4 thou/uL (1.40-6.50); %Basophils 0.7 % (0.0-1.0); %Eosinophils 2.3 % (0.0-10.0); %Lymphocytes 25.3 % (21.0-51.0); %Monocytes 7.1 % (0.0-10.0); %Neutrophils 64.3 % (42.0-75.0); Mean Corpuscular HGB CONC 35.7 g/dL (32.0-36.0); Mean Corpuscular Hemoglobin 29.9 pg (27.0-31.0); Mean Corpuscular Volume 83.6 fl (78.0-98.0); Mean Platelet Volume 11.5 fL (7.4-10.4); Platelet Count 199 10x3/uL (130-400); RBC Distribution Width 14.9 % (11.5-14.5); Red Blood Cell (RBC) Count 4.02 mill/uL (4.20-5.40); White Blood Cell (WBC) Count 6.9 10x3/uL (4.8-10.8)
[2022-11-15 15:46] LABS: Anion Gap 17 mmol/L (10-20); BUN (Urea Nitrogen) 13 mg/dL (9.8-20.1); Calc. Creatinine Clearance 68 mL/min (70-130); Carbon Dioxide 22 mmol/L (23-31); Chloride 105 mmol/L (98-107); Estimated GFR 77; Glucose 156 mg/dL (83-110); Potassium 3.9 mmol/L (3.5-5.1); Sodium 140 mmol/L (136-145)
[2022-11-15] MEDS ORDERED: Simethicone Chewable 80 MG TAB PO PRN (15:50)
[2022-11-15 15:52] LABS: Troponin I 0.014 ng/mL (< 0.028)
[2022-11-15] MEDS: metFORMIN 500 MG TAB PO SCH (16:06)
[2022-11-15 19:42] LABS: Troponin I 0.266 ng/mL (< 0.028)
[2022-11-15] MEDS ORDERED: Aspirin 325 mg Enteric Coated Tablet PO SCH (20:00)
[2022-11-15] MEDS: traMADol HCl 50 MG TAB PO SCH (21:45)
[2022-11-15] MEDS: Atorvastatin Calcium 40 MG TAB PO SCH (21:46)
[2022-11-15 22:49] LABS: Magnesium 1.4 mg/dL (1.6-2.6)
[2022-11-15] MEDS ORDERED: Magnesium Sulfate In Water 4 GM in Premix Bag 1 BAG IVPB SCH (23:15)
[2022-11-16 01:52] LABS: Troponin I 0.559 ng/mL (< 0.028)
[2022-11-16 05:01] LABS: #Basophils 0.1 thou/uL (0.0-0.2); #Eosinphils 0.3 thou/uL (0.0-0.7); #Monocytes 0.4 thou/uL (0.11-0.59); #Neutrophils 3.6 thou/uL (1.40-6.50); %Basophils 1.5 % (0.0-1.0); %Eosinophils 5.4 % (0.0-10.0); %Lymphocytes 19.6 % (21.0-51.0); %Monocytes 7.8 % (0.0-10.0); %Neutrophils 65.2 % (42.0-75.0); Hemoglobin 11.4 g/dL (12.0-16.0); Mean Corpuscular Hemoglobin 30.1 pg (27.0-31.0); Mean Corpuscular Volume 83.6 fl (78.0-98.0); Mean Platelet Volume 11.3 fL (7.4-10.4); Platelet Count 190 10x3/uL (130-400); RBC Distribution Width 14.8 % (11.5-14.5); Red Blood Cell (RBC) Count 3.79 mill/uL (4.20-5.40); White Blood Cell (WBC) Count 5.5 10x3/uL (4.8-10.8)
[2022-11-16 05:36] LABS: Anion Gap 12 mmol/L (10-20); BUN (Urea Nitrogen) 10 mg/dL (9.8-20.1); Calc. Creatinine Clearance 71 mL/min (70-130); Calcium 8.8 mg/dL (7.8-10.44); Carbon Dioxide 25 mmol/L (23-31); Chloride 109 mmol/L (98-107); Estimated GFR 81; Glucose 100 mg/dL (83-110); Magnesium 2.6 mg/dL (1.6-2.6); Potassium 3.5 mmol/L (3.5-5.1); Sodium 142 mmol/L (136-145)
[2022-11-16] MEDS: traMADol HCl 50 MG TAB PO SCH ×2 (08:15→20:21)
[2022-11-16] MEDS: metFORMIN 500 MG TAB PO SCH ×2 (08:16→17:33)
[2022-11-16] MEDS: Tamsulosin HCl 0.4 MG CAP PO SCH (08:16)
[2022-11-16] MEDS: Aspirin 81 mg Enteric Coated Tablet PO SCH (08:16)
[2022-11-16] MEDS: hydrALAZINE 25 MG TAB PO SCH ×3 (08:16→20:22)
[2022-11-16] MEDS: Metoprolol Tartrate 25 MG TAB PO SCH ×2 (08:16→20:22)
[2022-11-16] MEDS: Apixaban 5 MG TAB PO SCH ×2 (08:16→20:21)
[2022-11-16] MEDS: cefTRIAXone\\ROCEPHIN 1 GM in Sodium Chloride 0.9% 100 ML IVPB SCH (13:41)
[2022-11-16] MEDS: Atorvastatin Calcium 40 MG TAB PO SCH (20:21)
[2022-11-17 04:43] LABS: #Basophils 0.1 thou/uL (0.0-0.2); #Eosinphils 0.4 thou/uL (0.0-0.7); #Monocytes 0.5 thou/uL (0.11-0.59); #Neutrophils 3.8 thou/uL (1.40-6.50); %Basophils 1.2 % (0.0-1.0); %Eosinophils 6.4 % (0.0-10.0); %Lymphocytes 18.2 % (21.0-51.0); %Monocytes 8.9 % (0.0-10.0); %Neutrophils 65.1 % (42.0-75.0); Hemoglobin 11.2 g/dL (12.0-16.0); Mean Corpuscular HGB CONC 35.4 g/dL (32.0-36.0); Mean Corpuscular Hemoglobin 29.7 pg (27.0-31.0); Mean Corpuscular Volume 83.8 fl (78.0-98.0); Mean Platelet Volume 11.2 fL (7.4-10.4); Platelet Count 193 10x3/uL (130-400); RBC Distribution Width 14.9 % (11.5-14.5); Red Blood Cell (RBC) Count 3.77 mill/uL (4.20-5.40); White Blood Cell (WBC) Count 5.8 10x3/uL (4.8-10.8)
[2022-11-17 05:04] LABS: Anion Gap 12 mmol/L (10-20); BUN (Urea Nitrogen) 17 mg/dL (9.8-20.1); Calc. Creatinine Clearance 65 mL/min (70-130); Calcium 8.6 mg/dL (7.8-10.44); Carbon Dioxide 23 mmol/L (23-31); Chloride 108 mmol/L (98-107); Estimated GFR 72; Glucose 142 mg/dL (83-110); Potassium 3.8 mmol/L (3.5-5.1); Sodium 139 mmol/L (136-145)
[2022-11-17] MEDS: Metoprolol Tartrate 25 MG TAB PO SCH ×2 (10:14→20:17)
[2022-11-17] MEDS: hydrALAZINE 25 MG TAB PO SCH ×3 (10:15→20:16)
[2022-11-17] MEDS: Aspirin 81 mg Enteric Coated Tablet PO SCH (10:15)
[2022-11-17] MEDS: Tamsulosin HCl 0.4 MG CAP PO SCH (10:16)
[2022-11-17] MEDS: traMADol HCl 50 MG TAB PO SCH ×2 (10:16→20:17)
[2022-11-17] MEDS: Apixaban 5 MG TAB PO SCH ×2 (10:19→20:17)
[2022-11-17] MEDS: metFORMIN 500 MG TAB PO SCH ×2 (10:22→18:11)
[2022-11-17] MEDS: cefTRIAXone\\ROCEPHIN 1 GM in Sodium Chloride 0.9% 100 ML IVPB SCH (13:46)
[2022-11-17] MEDS: Atorvastatin Calcium 40 MG TAB PO SCH (20:16)
[2022-11-18 04:53] LABS: #Basophils 0.1 thou/uL (0.0-0.2); #Eosinphils 0.3 thou/uL (0.0-0.7); #Monocytes 0.4 thou/uL (0.11-0.59); #Neutrophils 2.9 thou/uL (1.40-6.50); %Basophils 1.4 % (0.0-1.0); %Eosinophils 6.1 % (0.0-10.0); %Lymphocytes 26.1 % (21.0-51.0); %Monocytes 7.9 % (0.0-10.0); %Neutrophils 58.1 % (42.0-75.0); Hemoglobin 11.3 g/dL (12.0-16.0); Mean Corpuscular HGB CONC 35.2 g/dL (32.0-36.0); Mean Corpuscular Hemoglobin 29.6 pg (27.0-31.0); Mean Platelet Volume 11.8 fL (7.4-10.4); Platelet Count 202 10x3/uL (130-400); RBC Distribution Width 14.8 % (11.5-14.5); Red Blood Cell (RBC) Count 3.82 mill/uL (4.20-5.40); White Blood Cell (WBC) Count 4.9 10x3/uL (4.8-10.8)
[2022-11-18 05:11] LABS: Anion Gap 11 mmol/L (10-20); BUN (Urea Nitrogen) 16 mg/dL (9.8-20.1); Calc. Creatinine Clearance 77 mL/min (70-130); Carbon Dioxide 25 mmol/L (23-31); Chloride 110 mmol/L (98-107); Estimated GFR 87; Glucose 134 mg/dL (83-110); Potassium 3.7 mmol/L (3.5-5.1); Sodium 142 mmol/L (136-145)
[2022-11-18] MEDS: Metoprolol Tartrate 25 MG TAB PO SCH ×2 (09:10→20:47)
[2022-11-18] MEDS: hydrALAZINE 25 MG TAB PO SCH ×3 (09:11→20:48)
[2022-11-18] MEDS: Tamsulosin HCl 0.4 MG CAP PO SCH (09:11)
[2022-11-18] MEDS: Aspirin 81 mg Enteric Coated Tablet PO SCH (09:12)
[2022-11-18] MEDS: Apixaban 5 MG TAB PO SCH ×2 (09:12→20:47)
[2022-11-18] MEDS: traMADol HCl 50 MG TAB PO SCH ×2 (09:12→20:48)
[2022-11-18] MEDS: metFORMIN 500 MG TAB PO SCH ×2 (09:12→17:08)
[2022-11-18] MEDS: cefTRIAXone\\ROCEPHIN 1 GM in Sodium Chloride 0.9% 100 ML IVPB SCH (12:49)
[2022-11-18] MEDS: Atorvastatin Calcium 40 MG TAB PO SCH (20:47)
[2022-11-19 05:07] LABS: #Basophils 0.1 thou/uL (0.0-0.2); #Eosinphils 0.2 thou/uL (0.0-0.7); #Monocytes 0.5 thou/uL (0.11-0.59); #Neutrophils 3.3 thou/uL (1.40-6.50); %Basophils 0.9 % (0.0-1.0); %Eosinophils 4.3 % (0.0-10.0); %Lymphocytes 24.1 % (21.0-51.0); %Monocytes 8.6 % (0.0-10.0); %Neutrophils 61.7 % (42.0-75.0); Hemoglobin 11.2 g/dL (12.0-16.0); Mean Corpuscular HGB CONC 34.9 g/dL (32.0-36.0); Mean Corpuscular Hemoglobin 29.6 pg (27.0-31.0); Mean Corpuscular Volume 84.9 fl (78.0-98.0); Mean Platelet Volume 11.5 fL (7.4-10.4); Platelet Count 207 10x3/uL (130-400); RBC Distribution Width 15.1 % (11.5-14.5); Red Blood Cell (RBC) Count 3.78 mill/uL (4.20-5.40); White Blood Cell (WBC) Count 5.3 10x3/uL (4.8-10.8)
[2022-11-19 05:27] LABS: Anion Gap 12 mmol/L (10-20); BUN (Urea Nitrogen) 16 mg/dL (9.8-20.1); Calc. Creatinine Clearance 77 mL/min (70-130); Calcium 8.7 mg/dL (7.8-10.44); Carbon Dioxide 25 mmol/L (23-31); Chloride 109 mmol/L (98-107); Estimated GFR 87; Glucose 152 mg/dL (83-110); Potassium 3.8 mmol/L (3.5-5.1); Sodium 142 mmol/L (136-145)
[2022-11-19] MEDS: traMADol HCl 50 MG TAB PO SCH ×2 (08:45→20:36)
[2022-11-19] MEDS: hydrALAZINE 25 MG TAB PO SCH ×3 (08:45→20:37)
[2022-11-19] MEDS: metFORMIN 500 MG TAB PO SCH ×2 (08:45→16:00)
[2022-11-19] MEDS: Aspirin 81 mg Enteric Coated Tablet PO SCH (08:45)
[2022-11-19] MEDS: Metoprolol Tartrate 25 MG TAB PO SCH ×2 (08:45→20:37)
[2022-11-19] MEDS: Apixaban 5 MG TAB PO SCH ×2 (08:47→20:36)
[2022-11-19] MEDS: Tamsulosin HCl 0.4 MG CAP PO SCH (08:47)
[2022-11-19] MEDS ORDERED: Docusate 100 MG CAP PO SCH (11:30)
[2022-11-19] MEDS ORDERED: Polyethylene Glycol 3350 17 GM Packet PO SCH (11:30)
[2022-11-19] MEDS: cefTRIAXone\\ROCEPHIN 1 GM in Sodium Chloride 0.9% 100 ML IVPB SCH (12:54)
[2022-11-19] MEDS: Atorvastatin Calcium 40 MG TAB PO SCH (20:36)
[2022-11-20] MEDS: metFORMIN 500 MG TAB PO SCH ×2 (08:31→16:51)
[2022-11-20] MEDS: traMADol HCl 50 MG TAB PO SCH ×2 (08:31→20:40)
[2022-11-20] MEDS: Metoprolol Tartrate 25 MG TAB PO SCH ×2 (08:31→20:40)
[2022-11-20] MEDS: Apixaban 5 MG TAB PO SCH ×2 (08:32→20:40)
[2022-11-20] MEDS: Tamsulosin HCl 0.4 MG CAP PO SCH (08:32)
[2022-11-20] MEDS: Aspirin 81 mg Enteric Coated Tablet PO SCH (08:33)
[2022-11-20] MEDS: hydrALAZINE 25 MG TAB PO SCH ×3 (08:33→20:40)
[2022-11-20] MEDS: Atorvastatin Calcium 40 MG TAB PO SCH (20:40)
[2022-11-21] MEDS: metFORMIN 500 MG TAB PO SCH ×2 (08:31→16:38)
[2022-11-21] MEDS: traMADol HCl 50 MG TAB PO SCH (08:31)
[2022-11-21] MEDS: Apixaban 5 MG TAB PO SCH (08:32)
[2022-11-21] MEDS: Aspirin 81 mg Enteric Coated Tablet PO SCH (08:33)
[2022-11-21] MEDS: hydrALAZINE 25 MG TAB PO SCH ×2 (08:33→14:28)
[2022-11-21] MEDS: Tamsulosin HCl 0.4 MG CAP PO SCH (08:33)
[2022-11-21] MEDS: Metoprolol Tartrate 25 MG TAB PO SCH (08:34)
[2022-11-21 15:18] VITALS: BP 147/67; TEMP 97.8
== END 2022-11-21 16:50 | DRG 689 ==
LOC: ERS 11:13 → T4-B 13:27 → 2NO 11-15 20:51 → OBSVTOIN 11-16 20:18
PROVIDERS: ADMIT Family Medicine; ATTEND Hospitalist
DX: N30.00 Acute cystitis without hematuria (principal); I21.A1 Myocardial infarction type 2; I50.32 Chronic diastolic (congestive) heart failure; I11.0 Hypertensive heart disease with heart failure; E11.9 Type 2 diabetes mellitus without complications; G20 Parkinson's disease; R53.1 Weakness; E11.51 Type 2 diabetes mellitus with diabetic peripheral angiopathy without gangrene; L89.152 Pressure ulcer of sacral region, stage 2; B96.1 Klebsiella pneumoniae [K. pneumoniae] as the cause of diseases classified elsewhere; Z79.01 Long term (current) use of anticoagulants; Z86.718 Personal history of other venous thrombosis and embolism; Z88.6 Allergy status to analgesic agent; Z88.8 Allergy status to other drugs, medicaments and biological substances; Z79.82 Long term (current) use of aspirin; Z79.899 Other long term (current) drug therapy; Z79.84 Long term (current) use of oral hypoglycemic drugs; Z90.49 Acquired absence of other specified parts of digestive tract; Z90.710 Acquired absence of both cervix and uterus; Z98.890 Other specified postprocedural states; Z74.01 Bed confinement status; Z82.49 Family history of ischemic heart disease and other diseases of the circulatory system; Z98.41 Cataract extraction status, right eye; Z98.42 Cataract extraction status, left eye
CPT/HCPCS: 36415; 36416; 70450; 71045; 80048; 80053; 81001; 83735; 84484; 85025; 87040; 87077; 87086; 87186; 93005; 93010; 93306; 93970; 96365; 96375; 96376; 97139; G0378; J0360; J0696; J3475; J3490; J7030